=== PATIENT | female | born 1975 | race Caucasian/White ===

== ENCOUNTER 2024-06-25 00:01 | Observation (INO) | payer OTHER ==
[~2024-06-25] VITALS: Ht 147.3 cm; Wt 74.8 kg
[~2024-06-25 00:01] MED LIST: Colace100 MG PO; DOCU100 PO; LORA1SY
[2024-06-25 01:03] LABS: BASOPHILS ABSOLUTE AUTO 0.05 K/mm3 (0.00-0.23); BASOPHILS PERCENT AUTO 1 % (0-2); EOSINOPHILS ABSOLUTE AUTO 0.11 K/mm3 (0.00-0.68); EOSINOPHILS PERCENT AUTO 2 % (0-6); Hematocrit 33.4 % (33.0-51.0); Hemoglobin 10.8 g/dL (11.5-16.0); IMMATURE GRAN ABSOLUTE AUTO 0.02 K/mm3 (0.00-0.10); IMMATURE GRAN PERCENT AUTO 0 % (0-1); LYMPHOCYTES ABSOLUTE AUTO 1.65 K/mm3 (0.84-5.20); LYMPHOCYTES PERCENT AUTO 27 % (21-46); MONOCYTES ABSOLUTE AUTO 0.46 K/mm3 (0.16-1.47); MONOCYTES PERCENT AUTO 8 % (4-13); Mean Corpuscular HGB 29.9 pg (26.0-34.0); Mean Corpuscular HGB Conc 32.3 g/dL (31.5-36.5); Mean Corpuscular Volume 93 fL (80-100); Mean Platelet Volume 9.8 fL (9.1-12.4); NEUTROPHILS ABSOLUTE AUTO 3.86 K/mm3 (1.96-9.15); NEUTROPHILS PERCENT AUTO 63 % (41-73); Platelet Count 249 K/mm3 (150-400); RDW Coefficient Variation 13.7 % (11.7-14.2); RDW Standard Deviation 46.8 fL (35.1-46.3); Red Blood Cell Count 3.61 M/mm3 (3.80-5.20); White Blood Cell Count 6.15 K/mm3 (4.00-11.30)
[2024-06-25 01:15] LABS: Albumin, Blood 3.4 g/dL (3.4-5.0); Albumin/Globulin Ratio 0.9 (0.8-1.8); Bilirubin, Total 0.4 mg/dL (0.1-1.0); Bun/Creatinine Ratio 18.3 (12.0-20.0); Calcium, Blood 8.9 mg/dL (8.5-10.1); Creatinine, Blood 0.71 mg/dL (0.40-1.00); Globulin, Blood 3.8 g/dL (2.2-4.0); Potassium, Blood 3.3 mmol/L (3.5-5.5); Total Protein, Blood 7.2 g/dL (6.4-8.2)
[2024-06-25] MEDS ORDERED: NS 1,000 ML IV SCH (01:45)
[2024-06-25] MEDS ORDERED: Potassium Chl 20MEQ/Water100ML 100 ML IV SCH (01:50)
[2024-06-25] MEDS ORDERED: Naloxone HCl 0.4MG / ML 1ML Vial IV ONE (02:00)
[2024-06-25 02:04] LABS: Magnesium, Blood 2.1 mg/dL (1.6-2.4); Salicylate <1.7 mg/dL (2.8-20.0)
[2024-06-25 02:05] LABS: Acetaminophen, Random <2.0 ug/mL (10.0-30.0)
[2024-06-25] MEDS ORDERED: Lactated Ringer's 1,000 ML IV ONE (05:35)
[2024-06-25 06:19] LABS: U Amphetamine Screen DETECTED; U Barbituate Screen Not Detected; U Benzodiazapine Screen Not Detected; U Buprenorphine Screen DETECTED; U Cannabinoids Screen Not Detected; U Cocaine Screen Not Detected; U Methadone Screen Not Detected; U Methamphetamine Screen DETECTED; U Opiates Screen Not Detected; U Oxycodone Screen Not Detected; U Phencyclidine Screen Not Detected
[2024-06-25] MEDS ORDERED: Lactated Ringer's 1,000 ML IV SCH (06:30)
[2024-06-25] MEDS ORDERED: Enoxaparin 40 MG/0.4 ML SYR SC SCH (09:00)
[2024-06-25 09:04] LABS: Influenza A, PCR NEGATIVE (NEGATIVE); Influenza B, PCR NEGATIVE (NEGATIVE); Resp Syncytial Virus, PCR NEGATIVE (NEGATIVE); SARS-Cov-2 (COVID-19) PCR, MMC NEGATIVE (NEGATIVE)
[2024-06-25 09:33] LABS: Bun/Creatinine Ratio 14.6 (12.0-20.0); Calcium, Blood 8.9 mg/dL (8.5-10.1); Creatinine, Blood 0.55 mg/dL (0.40-1.00); Potassium, Blood 3.6 mmol/L (3.5-5.5)
[2024-06-25] MEDS ORDERED: SUBOXONE 8 MG-1 EACH SL (11:21)
[2024-06-25] MEDS ORDERED: HYDPAM50 PO (11:22)
[2024-06-25] MEDS ORDERED: QUETIAPINE FUMA50 M2 PO (11:24)
[2024-06-25] MEDS ORDERED: TOPI25 PO (11:25)
[2024-06-25] MEDS ORDERED: BUPROPION HCL200 M1 PO (11:28)
[2024-06-25 15:33] VITALS: BP 99/61
--- NOTE | 2024-06-25 19:26 | NUR ---
Pt admitted to floor at 1030, A-OX4 but sleepy, arousable by voice, ambulates independently, denies SOB, denies pain, on RA, on SI precautions, room safe, 1-1 sitter at all times. Lungs clear heart regular, bowel sounds normative. Pt can make needs known, call tracey in hand, bed in lowest position.
[2024-06-25 20:24] VITALS: BP 96/69
[2024-06-25] MEDS ORDERED: Buprenorphine HCL/Naloxone HCL 8MG-2MG Tab SL SCH (21:00)
[2024-06-25] MEDS ORDERED: buPROPion HCL 150 MG TAB.SR.12H PO SCH (21:00)
[2024-06-26 04:13] VITALS: BP 104/64
--- NOTE | 2024-06-26 05:43 | NUR ---
Patient alert and oriented x4, VSS, denying active suidical ideation, compliant with care + sitter. Call light system placed in room with cooperation of patient, sitter. Patient ambulating to bathroom with standby assistance for needs. LR @ 150 completed as ordered, tolerated well. Patient expressing eagerness for psych consultation today.
[2024-06-26 08:09] VITALS: BP 90/54
--- NOTE | 2024-06-26 15:41 | NUR ---
VSS, A-Ox4, denies SI at this time, deneis SOB, denies any pain, ambulates independently, on RA. Pt D/C at 1500, safety plan and resources disscused and given to Pt, insturction and education given, safety ensured.
== END 2024-06-26 15:00 | disposition home or self-care (01) ==
LOC: ER 00:01 → MEDS 00:02 → ERHOLD 00:02 → ER 00:02 → EOR 00:02 → MEDS 10:00
PROVIDERS: Internal Medicine; Student in an Organized Health Care Education/Training Program; ADMIT Family Medicine
DX: T45.0X2A Poisoning by antiallergic and antiemetic drugs, intentional self-harm, initial encounter (principal); I95.9 Hypotension, unspecified; E87.6 Hypokalemia; F15.20 Other stimulant dependence, uncomplicated; F17.200 Nicotine dependence, unspecified, uncomplicated; R45.851 Suicidal ideations; Z79.899 Other long term (current) drug therapy
CPT/HCPCS: 0241U; 51798; 80048; 80053; 80320; 83735; 84703; 85025; 93005; 93010; A9270; G0378; G0480; J1650; J2310; J3480; J7030; J7120

== ENCOUNTER → 2025-04-06 | Outpatient (CLI) | payer OTHER ==
[~2025-04-06] MED LIST changes: +BUPROPION HCL200 M1 PO; +HYDPAM50 PO; +QUETIAPINE FUMA50 M2 PO; +SUBOXONE 8 MG-1 EACH SL; +TOPI25 PO
[2025-04-06 16:19] LABS: BASOPHILS ABSOLUTE AUTO 0.03 K/mm3 (0.00-0.23); BASOPHILS PERCENT AUTO 1 % (0-2); EOSINOPHILS ABSOLUTE AUTO 0.21 K/mm3 (0.00-0.68); EOSINOPHILS PERCENT AUTO 4 % (0-6); Hematocrit 34.2 % (33.0-51.0); Hemoglobin 11.4 g/dL (11.5-16.0); IMMATURE GRAN ABSOLUTE AUTO 0.01 K/mm3 (0.00-0.10); IMMATURE GRAN PERCENT AUTO 0 % (0-1); LYMPHOCYTES ABSOLUTE AUTO 2.35 K/mm3 (0.84-5.20); LYMPHOCYTES PERCENT AUTO 43 % (21-46); MONOCYTES ABSOLUTE AUTO 0.42 K/mm3 (0.16-1.47); MONOCYTES PERCENT AUTO 8 % (4-13); Mean Corpuscular HGB 29.9 pg (26.0-34.0); Mean Corpuscular HGB Conc 33.3 g/dL (31.5-36.5); Mean Corpuscular Volume 90 fL (80-100); Mean Platelet Volume 9.5 fL (9.1-12.4); NEUTROPHILS ABSOLUTE AUTO 2.49 K/mm3 (1.96-9.15); NEUTROPHILS PERCENT AUTO 45 % (41-73); Platelet Count 200 K/mm3 (150-400); RDW Standard Deviation 42.6 fL (35.1-46.3); Red Blood Cell Count 3.81 M/mm3 (3.80-5.20); White Blood Cell Count 5.51 K/mm3 (4.00-11.30)
[2025-04-06 16:39] LABS: Albumin, Blood 3.4 g/dL (3.4-5.0); Albumin/Globulin Ratio 0.9 (0.8-1.8); Bilirubin, Total 0.4 mg/dL (0.1-1.0); Bun/Creatinine Ratio 23.6 (12.0-20.0); Calcium, Blood 9.4 mg/dL (8.5-10.1); Creatinine, Blood 0.72 mg/dL (0.40-1.00); Free Thyroxine 0.59 ng/dL (0.70-1.60); Globulin, Blood 3.9 g/dL (2.2-4.0); Potassium, Blood 3.6 mmol/L (3.5-5.5); Thyroid Stimulating Hormone 2.661 uIU/mL (0.360-4.800); Total Protein, Blood 7.3 g/dL (6.4-8.2)
== END ==
LOC: LAB SHORT 16:14 → LAB 16:14
PROVIDERS: Emergency Medicine
DX: R60.0 Localized edema (principal)
CPT/HCPCS: 80053; 83880; 84439; 84443; 84484; 85025